=== PATIENT | female | born 1990 | race Caucasian/White ===

== ENCOUNTER 2018-08-13 05:13 | Inpatient (IN) | payer BC ==
[2018-08-13] MEDS ORDERED: Nalbuphine 20 MG/ML 1 ML Syringe IVPUSH PRN (05:31)
[2018-08-13] MEDS ORDERED: Metoclopramide 10 MG/2 ML SDV IVPUSH ONE (05:31)
[2018-08-13] MEDS ORDERED: Citric Acid/Sodium Citrate Solution 30 ML Cup PO ONE (05:31)
[2018-08-13] MEDS ORDERED: ceFAZolin 2 GM in Premix Bag 1 BAG IV ONE (05:31)
[2018-08-13] MEDS ORDERED: Sodium Chloride 0.9% 10 ML Syringe FLUSH PRN (05:31)
[2018-08-13] MEDS ORDERED: Oxytocin/Lactated Ringers 10 UNIT/1,000 ML BAG IV SCH (05:45)
[2018-08-13] MEDS ORDERED: Lactated Ringers 1,000 ML IV SCH (05:45)
[2018-08-13] MEDS ORDERED: Oxytocin 10 Units/1 ML SDV ONE (07:01)
[2018-08-13] MEDS ORDERED: Morphine PF 10 MG/10 ML SDV ONE (07:01)
[2018-08-13] MEDS ORDERED: Ondansetron 4 MG/2 ML SDV ONE (07:01)
[2018-08-13] MEDS ORDERED: ceFAZolin 1 GM Vial ONE (07:01)
[2018-08-13] MEDS ORDERED: Lactated Ringers 1,000 ML ONE (07:01)
[2018-08-13] MEDS ORDERED: Bupivacaine 0.75%/D5W 2 ML Amp ONE (07:01)
[2018-08-13] MEDS ORDERED: diphenhydrAMINE 50 MG/ML SDV IVPUSH PRN ×3 (07:28→10:44)
[2018-08-13] MEDS ORDERED: fentaNYL 100 MCG/2 ML SDV EPIDUR PRN (07:28)
[2018-08-13] MEDS ORDERED: ePHEDrine 50 MG/ML SDV IVPUSH PRN ×3 (07:28→10:44)
[2018-08-13] MEDS ORDERED: fentaNYL/Bupivacaine-NS 2 MCG/ML-0.125%/PF 100 ML Bag EP SCH (07:30)
[2018-08-13] MEDS ORDERED: Terbutaline 1 MG/ML SDV SUBCUT ONE (07:45)
--- NOTE | 2018-08-13 07:48 | PCM.PREANE ---
Preanesthetic Assessment - Anesthesia/Transfusion/Family Hx Anesthesia History: Prior Anesthesia Without Reaction Family History of Anesthesia Reaction: No Transfusion History: No Prior Transfusion(s) - Review of Systems General: No Symptoms, Other (anemia) Pulmonary: No Symptoms Cardiovascular: No Symptoms Gastrointestinal: No Symptoms Neurological: No Symptoms Other: Reports: Anxiety - Physical Assessment NPO Status Date: 08/12/18 NPO Status Time: 22:30 O2 Sat by Pulse Oximetry: 93 Respiratory Rate: 18 Vital Signs: Last Vital Signs Temp 36.9 C 08/13/18 05:31 Pulse 100 08/13/18 05:31 Resp 18 08/13/18 05:31 BP 117/79 08/13/18 05:31 Pulse Ox 93 L 08/13/18 05:31 Height: 1.6 m Weight: 95.663 kg ASA Class: 2 Mental Status: Alert & Oriented x3 Airway Class: Mallampati = 2 Dentition: Reports: Normal Dentition Thyro-Mental Finger Breadths: 3 Mouth Opening Finger Breadths: 3 ROM/Head Extension: Full Lungs: Clear to Auscultation, Normal Respiratory Effort Cardiovascular: Regular Rate - Lab Values: Laboratory Last Values WBC 9.25 K/mm3 (3.98-10.04) 08/13/18 05:48 RBC 4.14 M/mm3 (3.98-5.22) 08/13/18 05:48 Hgb 11.1 gm/L (11.2-15.7) L 08/13/18 05:48 Hct 33.1 % (34.1-44.9) L 08/13/18 05:48 MCV 80.0 fl (79.4-94.8) 08/13/18 05:48 MCH 26.8 pg (25.6-32.2) 08/13/18 05:48 MCHC 33.5 g/dl (32.2-35.5) 08/13/18 05:48 RDW Std Deviation 38.5 fL (36.4-46.3) 08/13/18 05:48 Plt Count 235 K/mm3 (182-369) 08/13/18 05:48 MPV 9.9 fl (9.4-12.3) 08/13/18 05:48 Neut % (Auto) 75.9 % (34.0-71.1) H 08/13/18 05:48 Lymph % (Auto) 13.3 % (19.3-51.7) L 08/13/18 05:48 [place] % (Auto) 9.5 % (4.7-12.5) 08/13/18 05:48 Eos % (Auto) 0.8 (0.7-5.8) 08/13/18 05:48 Baso % (Auto) 0.1 % (0.1-1.2) 08/13/18 05:48 Neut # (Auto) 7.02 K/mm3 (1.56-6.13) H 08/13/18 05:48 Lymph # (Auto) 1.23 K/mm3 (1.18-3.74) 08/13/18 05:48 [place] # (Auto) 0.88 K/mm3 (0.24-0.36) H 08/13/18 05:48 Eos # (Auto) 0.07 K/mm3 (0.04-0.36) 08/13/18 05:48 Baso # (Auto) 0.01 K/mm3 (0.01-0.08) 08/13/18 05:48 Blood Type B POSITIVE 08/13/18 05:48 Gel Antibody Screen Negative 08/13/18 05:48 - Allergies Allergies/Adverse Reactions: Allergies Allergy/AdvReac Type Severity Reaction Status Date / Time No Known Allergies Allergy Verified 06/02/18 19:19 - Blood Blood Available: No Product(s) Available: None - Anesthesia Plan Pre-Op Medication Ordered: None - Acknowledgements Anesthesia Type Planned: Spinal (if proceeds to , if successful version , then proceed with epidural, platelets 235) Pt an Appropriate Candidate for the Planned Anesthesia: Yes Alternatives and Risks of Anesthesia Discussed w Pt/Guardian: Yes Pt/Guardian Understands and Agrees with Anesthesia Plan: Yes PreAnesthesia Questionnaire - Past Health History Medical/Surgical History: Denies 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: - SUBSTANCE USE Smoking Status *Q: Never Smoker Second Hand Smoke Exposure: No Recreational Drug Use History: No - HOME MEDS Home Medications: Home Meds [id number]/Iron Fumarate/FA/DSS [ 19 Tablet] 1 tab PO DAILY 06/02/18 [ History] - CURRENT (IN HOUSE) MEDS Current Meds: Current Medications Diphenhydramine HCl (Benadryl) 25 mg IVPUSH Q6H PRN PRN Reason: Itching Ephedrine Sulfate (Ephedrine Sulfate) 5 mg IVPUSH ASDIRECTED PRN PRN Reason: HYPOTENTSION Fentanyl (Sublimaze) 100 mcg EPIDUR Q3H PRN PRN Reason: Pain Fentanyl/Bupivacaine HCl (Mkphppfv-Fnjxs-Rt 2 Mcg/Ml-0.125%) 100 ml EP ASDIRECTED ADELITA Lactated Ringer's (Ringers, Lactated) 1,000 mls @ 125 mls/hr IV ASDIRECTED ADELITA Oxytocin/Lactated Ringer's (Pitocin In Lr 10 Units/1,000 Ml) 10 unit in 1,000 mls @ 100 mls/hr IV ASDIRECTED ADELITA; Protocol Nalbuphine HCl (Nubain) 10 mg IVPUSH Q2H PRN PRN Reason: pain Sodium Chloride (Saline Flush) 10 ml FLUSH ASDIRECTED PRN PRN Reason: Keep Vein Open Discontinued Medications Bupivacaine HCl/Dextrose (Marcaine 0.75% Spinal) Confirm Administered Dose 2 ml .ROUTE .STK-MED ONE Stop: 08/13/18 07:02 Cefazolin Sodium (Ancef) Confirm Administered Dose 2 gm .ROUTE .STK-MED ONE Stop: 08/13/18 07:02 Citric Acid/Sodium Citrate (Bicitra Solution) 30 ml PO ONETIME ONE Stop: 08/13/18 05:32 Cefazolin Sodium/Dextrose 2 gm (/ Premix) 50 mls @ 100 mls/hr IV ONETIME ONE Stop: 08/13/18 06:00 Lactated Ringer's (Ringers, Lactated) Confirm Administered Dose 1,000 mls @ as directed .ROUTE .STK-MED ONE Stop: 08/13/18 07:02 Metoclopramide HCl (Reglan) 10 mg IVPUSH ONETIME ONE Stop: 08/13/18 05:32 Morphine Sulfate (Duramorph Pf) Confirm Administered Dose 10 mg .ROUTE .STK-MED ONE Stop: 08/13/18 07:02 Ondansetron HCl (Zofran) Confirm Administered Dose 4 mg .ROUTE .STK-MED ONE Stop: 08/13/18 07:02 Oxytocin (Pitocin) Confirm Administered Dose 10 unit .ROUTE .STK-MED ONE Stop: 08/13/18 07:02
[2018-08-13] MEDS ORDERED: Terbutaline 1 MG/ML SDV ONE (07:52)
[2018-08-13] MEDS ORDERED: Bupivacaine 0.5% 30 ML SDV ONE (08:14)
[2018-08-13] MEDS ORDERED: Metoclopramide 10 MG/2 ML SDV ONE (08:24)
[2018-08-13] MEDS ORDERED: Citric Acid/Sodium Citrate Solution 30 ML Cup ONE (08:24)
[2018-08-13] MEDS ORDERED: Ketorolac 30 MG/ML SDV ONE (09:14)
[2018-08-13] MEDS ORDERED: fentaNYL 100 MCG/2 ML SDV IVPUSH PRN (09:37)
--- NOTE | 2018-08-13 09:39 | PCM.OPNOTE ---
- General Post-Op/Procedure Note Date of Surgery/Procedure: 08/13/18 Operative Procedure(s): primaray section Findings: viable male, footling breech, 8/, weight 7#10 oz at 0904 Pre Op Diagnosis: breech, failed version Post-Op Diagnosis: Same Anesthesia Technique: Spinal Primary Surgeon: Reena Ko Health Information Technologist: Charo Gao Fluid Replacement, Intraop: 1,800 Output, Urine Amount: 300 EBL in mLs: 600 Complications: None Condition: Good Free Text/Narrative:: The patient was taken to the operating room where epidural anesthesia was dosed to surgical levels without difficulty. The patient was prepped and draped in the usual sterile fashion in the dorsal supine position with a leftward tilt. A Pfannenstiel skin incision was made with the scalpel and carried through to the underlying layer of fascia. The fascia was incised in the midline and extended laterally using Johnson scissors. Isabelle clamps were used to elevate the superior aspect of the fascial incision, which was elevated, and the underlying rectus muscles were dissected off bluntly and using Johnson scissors. Attention was then turned to the inferior aspect of the fascial incision, which in similar fashion was grasped with Isabelle clamps, elevated, and the underlying rectus muscles were dissected off bluntly and using the johnson. The rectus muscles were dissected in the midline. The peritoneum was entered bluntly; this incision was extended superiorly and inferiorly with good visualization of the bladder. The bladder blade was inserted. The vesicouterine peritoneum was identified and entered sharply using Metzenbaum scissors. This incision was extended laterally and the bladder flap was created digitally. The bladder blade was reinserted. The lower uterine segment was incised in a transverse fashion using the scalpel and with digital traction. Clear fluid was noted. The was subsequently delivered grasping the feet and delivering in usual breech fashion. The cord was clamped and cut. The infant was subsequently handed to the awaiting manager sports whose presence had been requested.. The placenta was delivered spontaneously intact with a three- vessel cord noted. The uterus was exteriorized and cleared of all clots and debris. The uterine incision was repaired in 2 layers using 0 monocryl. Hemostasis was visualized. Hemostasis was visualized bilaterally. The uterus was returned to the abdomen. The uterine incision was reexamined and it was noted to be hemostatic. The pelvis was copiously irrigated. The fascia was closed with 1 PDS suture, and the skin was closed with 3-0 monocryl. Sponge, lap, and instrument counts were correct x2. The patient was stable at the completion of the procedure and was subsequently transferred to the recovery room in stable condition.
--- NOTE | 2018-08-13 09:39 | PCM.POSTAN ---
POST ANESTHESIA ASSESSMENT - MENTAL STATUS Mental Status: Alert, Oriented - VITAL SIGNS Pulse Rate: 102 SaO2: 99 Resp Rate: 19 Blood Pressure: 120/58 Temperature: 36.6 C - RESPIRATORY Respiratory Status: Respiratory Rate WNL, Airway Patent, O2 Saturation Stable, Supplemental Oxygen - CARDIOVASCULAR CV Status: Pulse Rate WNL, Blood Pressure Stable - GASTROINTESTINAL GI Status: No Symptoms - PAIN Pain Score: 0 Free Text/Narrative:: 0 - POST OP HYDRATION Hydration Status: Adequate & Stable
[2018-08-13] MEDS ORDERED: Lanolin 100% Cream 7 GM Tube TOP PRN (10:44)
[2018-08-13] MEDS ORDERED: Dextrose 5%-Lactated Ringers 1,000 ML IV SCH (10:44)
[2018-08-13] MEDS ORDERED: Docusate Sodium 100 MG Cap PO PRN (10:44)
[2018-08-13] MEDS ORDERED: Witch Hazel Medicated Pads 100/Jar TOP PRN (10:44)
[2018-08-13] MEDS ORDERED: Naloxone 0.4 MG/ML SDV IVPUSH PRN (10:44)
[2018-08-13] MEDS ORDERED: Ondansetron 4 MG/2 ML SDV IVPUSH PRN (11:04)
[2018-08-13] MEDS ORDERED: Haloperidol Lactate 5 MG/ML SDV IVPUSH PRN (11:38)
[2018-08-13] MEDS ORDERED: Promethazine 12.5 MG in Sodium Chloride 0.9% 50 ML IV ONE (16:02)
[2018-08-13] MEDS ORDERED: Sodium Chloride 0.9% 1,000 ML IV SCH (16:45)
[2018-08-13] MEDS: Ketorolac 30 MG/ML SDV IVPUSH SCH ×2 (16:57→21:25)
[2018-08-13] MEDS ORDERED: Sodium Chloride 0.9% 500 ML IV ONE (17:00)
[2018-08-14] MEDS: Ketorolac 30 MG/ML SDV IVPUSH SCH (03:51)
[2018-08-14] MEDS: Acetaminophen/oxyCODONE 325-5 MG Tab PO PRN ×3 (06:38→19:38)
--- NOTE | 2018-08-14 07:56 | PCM48HPAN ---
Post Anesthesia Note - EVALUATION WITHIN 48HRS OF ANESTHETIC Vital Signs in Normal Range: Yes Patient Participated in Evaluation: Yes Respiratory Function Stable: Yes Airway Patent: Yes Cardiovascular Function Stable: Yes Hydration Status Stable: Yes Pain Control Satisfactory: Yes Nausea and Vomiting Control Satisfactory: Yes Mental Status Recovered: Yes
[2018-08-14] MEDS ORDERED: Ibuprofen 600 MG Tab PO PRN (09:30)
[2018-08-14] MEDS: Simethicone 80 MG Tab.Chew PO PRN ×2 (19:38→22:45)
[2018-08-15] MEDS: Simethicone 80 MG Tab.Chew PO PRN (04:47)
--- NOTE | 2018-08-15 08:55 | PCM.DCSUM1 ---
Discharge Summary - Hospital Course Diagnosis: Stroke: No - Discharge Data Discharge Date: 08/15/18 Discharge Disposition: Home, Self-Care 01 Condition: Good - Patient Summary/Data Operative Procedure(s) Performed: primaray section Hospital Course: Unremarkable course. - Patient Instructions Diet: Usual Diet as Tolerated Activity: No Strenuous Activities Activity, Other: pelvic rest Driving: May Drive Today Notify Provider of: Fever, Increased Pain, Swelling and Redness, Drainage, Nausea and/or Vomiting - Discharge Plan *PRESCRIPTION DRUG MONITORING PROGRAM REVIEWED*: No *COPY OF PRESCRIPTION DRUG MONITORING REPORT IN PATIENT MITCHELL: No Home Medications: Home Meds [id number]/Iron Fumarate/FA/DSS [ 19 Tablet] 1 tab PO DAILY 06/02/18 [ History] Referrals: Reena Ko MD [Primary Care Provider] - (2 weeks) - Discharge Summary/Plan Comment DC Time >30 min.: No - Patient Data Vitals - Most Recent: Last Vital Signs Temp 36.9 C 08/15/18 03:45 Pulse 87 08/15/18 03:45 Resp 16 08/15/18 03:45 BP 114/82 08/15/18 03:45 Pulse Ox 98 08/15/18 03:45 Weight - Most Recent: 95.663 kg I&O - Last 24 hours: Intake & Output 08/14/18 08/15/18 08/15/18 22:59 06:59 14:59 Intake Total 0 1800 Output Total 300 Balance 0 1500 Med Orders - Current: Current Medications Diphenhydramine HCl (Benadryl) 25 mg IVPUSH Q6H PRN PRN Reason: Itching or Nausea Docusate Sodium (Colace) 100 mg PO Q12H PRN PRN Reason: Constipation Last Admin: 08/14/18 22:45 Dose: 100 mg Emollient Ointment (Lansinoh Hpa) 0 gm TOP ASDIRECTED PRN PRN Reason: Sore Nipples Ephedrine Sulfate (Ephedrine Sulfate) 5 mg IVPUSH SEECOMMENT PRN PRN Reason: Other Ibuprofen (Motrin) 600 mg PO Q6H PRN PRN Reason: mild pain or fever Last Admin: 08/14/18 11:38 Dose: 600 mg Naloxone HCl (Narcan) 0.1 mg IVPUSH SEECOMMENT PRN PRN Reason: Respiratory Depression Ondansetron HCl (Zofran) 4 mg IVPUSH Q8H PRN PRN Reason: Nausea Oxycodone/Acetaminophen (Percocet 325-5 Mg) 2 tab PO Q6H PRN PRN Reason: Pain (moderate 4-6) Last Admin: 08/14/18 19:38 Dose: 2 tab Simethicone (Simethicone) 80 mg PO Q4H PRN PRN Reason: Gas Last Admin: 08/15/18 04:47 Dose: 80 mg Witch Sharonda (Tucks) 1 pad TOP ASDIRECTED PRN PRN Reason: Perineal Comfort Measure Discontinued Medications Bupivacaine HCl (Marcaine 0.5%) Confirm Administered Dose 30 ml .ROUTE .STK-MED ONE Stop: 08/13/18 08:15 Last Admin: 08/13/18 08:59 Dose: 20 ml Bupivacaine HCl/Dextrose (Marcaine 0.75% Spinal) Confirm Administered Dose 2 ml .ROUTE .STK-MED ONE Stop: 08/13/18 07:02 Cefazolin Sodium (Ancef) Confirm Administered Dose 2 gm .ROUTE .STK-MED ONE Stop: 08/13/18 07:02 Citric Acid/Sodium Citrate (Bicitra Solution) 30 ml PO ONETIME ONE Stop: 08/13/18 05:32 Last Admin: 08/13/18 08:30 Dose: 30 ml Citric Acid/Sodium Citrate (Bicitra Solution) Confirm Administered Dose 30 ml .ROUTE .STK-MED ONE Stop: 08/13/18 08:25 Last Admin: 08/13/18 20:19 Dose: Not Given Diphenhydramine HCl (Benadryl) 25 mg IVPUSH Q6H PRN PRN Reason: Itching Diphenhydramine HCl (Benadryl) 25 mg IVPUSH Q6H PRN PRN Reason: itching Stop: 08/13/18 12:00 Ephedrine Sulfate (Ephedrine Sulfate) 5 mg IVPUSH ASDIRECTED PRN PRN Reason: HYPOTENTSION Ephedrine Sulfate (Ephedrine Sulfate) 5 mg IVPUSH ASDIRECTED PRN PRN Reason: Hypotension Stop: 08/13/18 12:00 Fentanyl (Sublimaze) 100 mcg EPIDUR Q3H PRN PRN Reason: Pain Fentanyl (Sublimaze) 50 mcg IVPUSH Q5M PRN PRN Reason: pain Stop: 08/13/18 12:00 Fentanyl/Bupivacaine HCl (Kqccnvmu-Btfuc-Bx 2 Mcg/Ml-0.125%) 100 ml EP ASDIRECTED ADELITA Haloperidol Lactate (Haldol) 1 mg IVPUSH ONETIME PRN PRN Reason: Nausea Stop: 08/13/18 13:30 Last Admin: 08/13/18 12:05 Dose: 1 mg Cefazolin Sodium/Dextrose 2 gm (/ Premix) 50 mls @ 100 mls/hr IV ONETIME ONE Stop: 08/13/18 06:00 Last Admin: 08/13/18 20:19 Dose: Not Given Lactated Ringer's (Ringers, Lactated) 1,000 mls @ 125 mls/hr IV ASDIRECTED [facility] Oxytocin/Lactated Ringer's (Pitocin In Lr 10 Units/1,000 Ml) 10 unit in 1,000 mls @ 100 mls/hr IV ASDIRECTED [facility]; Protocol Lactated Ringer's (Ringers, Lactated) Confirm Administered Dose 1,000 mls @ as directed .ROUTE .STK-MED ONE Stop: 08/13/18 07:02 Dextrose/Lactated Ringer's (Dextrose 5%-Lactated Ringers) 1,000 mls @ 125 mls/ hr IV ASDIRECTED ADELITA Stop: 08/13/18 18:43 Last Admin: 08/13/18 10:54 Dose: 125 mls/hr Promethazine HCl 12.5 mg/ (Sodium Chloride) 50.5 mls @ 100 mls/hr IV ONETIME ONE Stop: 08/13/18 16:32 Last Admin: 08/13/18 17:05 Dose: 100 mls/hr Sodium Chloride (Normal Saline) 1,000 mls @ 125 mls/hr IV ASDIRECTED [facility] Last Admin: 08/13/18 16:57 Dose: 125 mls/hr Sodium Chloride (Normal Saline) 500 mls @ 999 mls/hr IV ONETIME ONE Stop: 08/13/18 17:30 Last Admin: 08/13/18 17:47 Dose: Not Given Ketorolac Tromethamine (Toradol) Confirm Administered Dose 30 mg .ROUTE .STK- MED ONE Stop: 08/13/18 09:15 Ketorolac Tromethamine (Toradol) 30 mg IVPUSH Q6H ADELITA Stop: 08/14/18 03:31 Last Admin: 08/14/18 03:51 Dose: 30 mg Metoclopramide HCl (Reglan) 10 mg IVPUSH ONETIME ONE Stop: 08/13/18 05:32 Last Admin: 08/13/18 08:30 Dose: 10 mg Metoclopramide HCl (Reglan) Confirm Administered Dose 10 mg .ROUTE .STK-MED ONE Stop: 08/13/18 08:25 Last Admin: 08/13/18 20:19 Dose: Not Given Morphine Sulfate (Duramorph Pf) Confirm Administered Dose 10 mg .ROUTE .STK-MED ONE Stop: 08/13/18 07:02 Nalbuphine HCl (Nubain) 10 mg IVPUSH Q2H PRN PRN Reason: pain Ondansetron HCl (Zofran) Confirm Administered Dose 4 mg .ROUTE .STK-MED ONE Stop: 08/13/18 07:02 Oxytocin (Pitocin) Confirm Administered Dose 10 unit .ROUTE .STK-MED ONE Stop: 08/13/18 07:02 Sodium Chloride (Saline Flush) 10 ml FLUSH ASDIRECTED PRN PRN Reason: Keep Vein Open Terbutaline Sulfate (Brethine) Confirm Administered Dose 1 mg .ROUTE .STK-MED ONE Stop: 08/13/18 07:53 Last Admin: 08/13/18 07:55 Dose: 1 mg Terbutaline Sulfate (Brethine) 0.25 mg SUBCUT ONETIME ONE Stop: 08/13/18 07:46 Last Admin: 08/13/18 11:49 Dose: Not Given - Exam General: Reports: Alert, Oriented HEENT: Reports: Pupils Equal, Pupils Reactive, EOMI, Mucous Membr. Moist/[place] Neck: Reports: Supple Lungs: Reports: Clear to Auscultation, Normal Respiratory Effort Cardiovascular: Reports: Regular Rate, Regular Rhythm GI/Abdominal Exam: Normal Bowel Sounds, Soft, Non-Tender, No Organomegaly, No Distention, No Abnormal Bruit, No Mass, Pelvis Stable (Female) Exam: Normal Bimanual Exam Rectal (Female) Exam: Normal Exam Back Exam: Reports: Normal Inspection, Full Range of Motion Extremities: Normal Inspection, Normal Range of Motion, Non-Tender, No Pedal Edema, Normal Capillary Refill Skin: Reports: Warm, Dry, Intact Wound/Incisions: Reports: Healing Well Neurological: Reports: No New Focal Deficit Psy/Mental Status: Reports: Alert, Normal Affect, Normal Mood
[2018-08-15 12:18] VITALS: BP 116/78
== END 2018-08-15 11:30 | disposition home or self-care (01) | DRG 540 ==
LOC: INTOOBSV 05:13 → JD.OB 05:13 → OBSVTOIN 09:04 → JD.OB 09:04
PROVIDERS: ADMIT Obstetrics & Gynecology; ATTEND Obstetrics & Gynecology
PROC: 10D00Z1 Extraction of Products of Conception, Low, Open Approach (ICD-10-PCS; principal; 2018-08-13)
DX: O32.8XX0 Maternal care for other malpresentation of fetus, not applicable or unspecified (principal); O99.344 Other mental disorders complicating childbirth; O99.02 Anemia complicating childbirth; D64.9 Anemia, unspecified; F41.9 Anxiety disorder, unspecified; Z3A.39 39 weeks gestation of pregnancy; Z37.0 Single live birth
CPT/HCPCS: 01961; 36415; 59025; 59412; 85025; 86592; 86850; 86900; 86901; A9270-GY; J0690; J1630; J1885; J2270; J2405; J2550; J2590; J2765; J3105; J3490; J7040; J7042; J7050; J7120

== ENCOUNTER 2020-08-26 10:16 | Emergency (ER) | payer BC ==
[2020-08-26] MEDS ORDERED: Sodium Chloride 0.9% 10 ML Syringe FLUSH PRN (11:18)
--- NOTE | 2020-08-26 11:59 | EDM.PDOC ---
ED HPI GENERAL MEDICAL PROBLEM - General Chief Complaint: Abdominal Pain Stated Complaint: UPPER ABD PAIN /6 WEEKS PREG Time Seen by Provider: 08/26/20 11:07 Source of Information: Reports: Patient, RN Notes Reviewed History Limitations: Reports: No Limitations - History of Present Illness INITIAL COMMENTS - FREE TEXT/NARRATIVE: Patient is a 30-year-old female presenting to the emergency part with complaints of a 2-week history of upper abdominal pain. Pain is worsened with eating she describes it as a sharp, cramping pain. She was seen at the walk-in clinic on Sunday of this week and blood work done which was all found to be normal. She is approximately 6 to 7 weeks . She does have nausea but has had no vomiting. Denies diarrhea or heartburn. She has not taken any wugz-hyo-gdlzkki antacids or other medications. Upper Abdominal Pain Score (Numeric/FACES): 6 - Related Data Allergies Allergy/AdvReac Type Severity Reaction Status Date / Time No Known Allergies Allergy Verified 08/26/20 10:44 Home Meds: Home Meds Prenat 115/Iron Fum/Folic/Dss [ 19 Tablet] 1 tab PO DAILY 06/02/18 [History] Omeprazole 20 mg PO DAILY #30 capsule. 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 Denies: Fever, Chills, Decreased Appetite HEENT: Reports: No Symptoms Respiratory: Reports: No Symptoms Cardiovascular: Reports: No Symptoms Endocrine: Reports: No Symptoms GI/Abdominal: Reports: Abdominal Pain (Upper abdominal pain), Nausea. Denies: Diarrhea, Vomiting : Reports: No Symptoms Musculoskeletal: Reports: No Symptoms Skin: Reports: No Symptoms Neurological: Reports: No Symptoms Psychiatric: Reports: No Symptoms Hematologic/Lymphatic: Reports: No Symptoms Immunologic: Reports: No Symptoms ED EXAM, GI/ABD - Physical Exam Exam: See Below General Appearance: Alert, WD/WN, No Apparent Distress Respiratory/Chest: No Respiratory Distress, Lungs Clear, Normal Breath Sounds, No Accessory Muscle Use, Chest Non-Tender Cardiovascular: Normal Peripheral Pulses, Regular Rate, Rhythm, No Edema, No Gallop, No JVD, No Murmur, No Rub GI/Abdominal Exam: Normal Bowel Sounds, Soft, No Organomegaly, No Distention, No Abnormal Bruit, No Mass, Pelvis Stable, Tender (Epigastric and right upper quadrant. Worse in the epigastrium) Neurological: Alert, Oriented, CN II-XII Intact, Normal Cognition, Normal Gait, Normal Reflexes, No Motor/Sensory Deficits Psychiatric: Normal Affect, Normal Mood Skin Exam: Warm, Dry, Intact, Normal Color, No Rash Course - Vital Signs Last Recorded V/S: Last Vital Signs Temp 98.5 F 08/26/20 10:37 Pulse 76 08/26/20 10:37 Resp 13 08/26/20 10:37 BP 123/78 08/26/20 10:37 Pulse Ox 100 08/26/20 10:37 - Orders/Labs/Meds Orders: Active Orders 24 hr Category Date Time Status Peripheral IV Care [RC] . DIRECTED Care 08/26/20 11:18 Active Sodium Chloride 0.9% [Saline Flush] Med 08/26/20 11:18 Active 10 ml FLUSH ASDIRECTED PRN Peripheral IV Insertion Adult [OM.PC] Stat Oth 08/26/20 11:18 Ordered Labs: Laboratory Tests 08/26/20 08/26/20 Range/Units 12:11 12:11 WBC 9.40 (3.98-10.04) K/mm3 RBC 4.75 (3.98-5.22) M/mm3 Hgb 13.5 D (11.2-15.7) gm/dl Hct 39.6 (34.1-44.9) % MCV 83.4 (79.4-94.8) fl MCH 28.4 (25.6-32.2) pg MCHC 34.1 (32.2-35.5) g/dl RDW Std Deviation 39.2 (36.4-46.3) fL Plt Count 259 (182-369) K/mm3 MPV 9.8 (9.4-12.3) fl Neut % (Auto) 78.0 H (34.0-71.1) % Lymph % (Auto) 12.4 L (19.3-51.7) % [place] % (Auto) 8.5 (4.7-12.5) % Eos % (Auto) 0.9 (0.7-5.8) Baso % (Auto) 0.1 (0.1-1.2) % Neut # (Auto) 7.33 H (1.56-6.13) K/mm3 Lymph # (Auto) 1.17 L (1.18-3.74) K/mm3 [place] # (Auto) 0.80 H (0.24-0.36) K/mm3 Eos # (Auto) 0.08 (0.04-0.36) K/mm3 Baso # (Auto) 0.01 (0.01-0.08) K/mm3 Sodium 138 (136-145) mEq/L Potassium 4.1 (3.5-5.1) mEq/L Chloride 102 (98-107) mEq/L Carbon Dioxide 27 (21-32) mEq/L Anion Gap 13.1 (5-15) BUN 14 (7-18) mg/dL Creatinine 0.8 (0.55-1.02) mg/dL Est Cr Clr Drug Dosing 85.06 mL/min Estimated GFR (MDRD) > 60 (>60) mL/min BUN/Creatinine Ratio 17.5 (14-18) Glucose 78 (74-106) mg/dL Calcium 9.0 (8.5-10.1) mg/dL Total Bilirubin 0.4 (0.2-1.0) mg/dL AST 16 (15-37) U/L ALT 36 (14-59) U/L Alkaline Phosphatase 65 (46-116) U/L C-Reactive Protein 1.2 H* (<1.0) mg/dL Total Protein 7.7 (6.4-8.2) g/dl Albumin 3.9 (3.4-5.0) g/dl Globulin 3.8 gm/dL Albumin/Globulin Ratio 1.0 (1-2) Lipase 160 (73-393) U/L - Re-Assessments/Exams Free Text/Narrative Re-Assessment/Exam: Patient is a 30-year-old female presenting to the emergency part with complaints of a 2-week history of upper abdominal pain. Is are worse anytime she eats. She has had no vomiting but does feel nauseous, however she is also 6 to 7 weeks . Denies any fever, chills, or diarrhea. On exam, she does have localized discomfort to the epigastrium and to a lesser degree the right upper quadrant. I have ordered a right upper quadrant ultrasound, blood work including CBC, CMP, CRP, and lipase. 08/26/20 13:01 Hematology is found to be grossly unremarkable. Lipase and liver enzymes are normal. Ultrasound of the right upper quadrant showed no acute abnormalities. Discussed with patient that she is likely suffering from gastritis. I will start her on daily omeprazole as well as Carafate. Recommend follow-up in the clinic early next week. Discharge instructions as documented. Departure - Departure Time of Disposition: 13:02 Disposition: Home, Self-Care 01 Condition: Good Clinical Impression: Abdominal pain Qualifiers: Abdominal location: upper abdomen, unspecified Qualified Code(s): R10.10 - Upper abdominal pain, unspecified - Discharge Information *PRESCRIPTION DRUG MONITORING PROGRAM REVIEWED*: No *COPY OF PRESCRIPTION DRUG MONITORING REPORT IN PATIENT MITCHELL: No Prescriptions: Sucralfate [Carafate] 1 gm PO ACBED #40 tab Omeprazole 20 mg PO DAILY #30 capsule.dr Instructions: Abdominal Pain, Adult, [id number] Referrals: Reena Ko MD [Primary Care Provider] - Forms: ED Department Discharge Additional Instructions: You were seen in the emergency department today for evaluation with regards to upper abdominal pain for the last 2 weeks, worse with eating. Work-up included blood work, and an ultrasound of your upper abdomen. Results of your work-up were found to be normal. As we discussed, you are likely suffering from gastritis which is an inflammation of the lining of your stomach. You been started on omeprazole as well as Carafate. Uses medications as prescribed. Recommend follow-up in the clinic early next week for reevaluation. The number to schedule with a provider is [phone]. Return to ER for any new or worsening symptoms of concern. Sepsis Event Note (ED) - Evaluation Sepsis Screening Result: No Definite Risk - Focused Exam Vital Signs: Vital Signs Temp Pulse Resp BP Pulse Ox 08/26/20 10:37 98.5 F 76 13 123/78 100 - My Orders Last 24 Hours: My Active Orders 08/26/20 11:18 Peripheral IV Care [RC] . DIRECTED Sodium Chloride 0.9% [Saline Flush] 10 ml FLUSH ASDIRECTED PRN Peripheral IV Insertion Adult [OM.PC] Stat - Assessment/Plan Last 24 Hours: My Active Orders 08/26/20 11:18 Peripheral IV Care [RC] . DIRECTED Sodium Chloride 0.9% [Saline Flush] 10 ml FLUSH ASDIRECTED PRN Peripheral IV Insertion Adult [OM.PC] Stat
--- NOTE | 2020-08-26 12:13 | US ---
Limited abdominal ultrasound: Multiple real-time images were obtained of the upper right abdomen. Comparison: No previous study. Liver shows no focal parenchymal abnormality. Gallbladder contains no shadowing gallstones. No gallbladder wall thickening or biliary duct dilatation is seen. Pancreas is within normal limits. Main portal vein shows normal hepatopedal flow. Right kidney shows no hydronephrosis or mass. Right kidney has a length of 11.8 cm. Impression: 1. No abnormality is identified on right upper quadrant abdominal ultrasound. Diagnostic code #1
[2020-08-26 13:13] VITALS: BP 123/70; PULSE 70
== END 2020-08-26 13:15 | disposition home or self-care (01) ==
LOC: JD.ED 10:16
DX: O99.891 Other specified diseases and conditions complicating pregnancy (principal); R10.13 Epigastric pain; R10.11 Right upper quadrant pain; R11.0 Nausea; Z3A.01 Less than 8 weeks gestation of pregnancy
CPT/HCPCS: 36415; 76705; 76705-26; 80053; 83690; 85025; 86140; 99283; 99284-25

== ENCOUNTER 2021-07-02 19:58 | Emergency (ER) | payer BC ==
[2021-07-02 20:30] VITALS: BP 131/68; PULSE 82
[2021-07-02 20:55] LABS: CORONAVIRUS COVID-19 NAA NEGATIVE (NEGATIVE)
== END 2021-07-03 00:33 | disposition home or self-care (01) ==
LOC: JD.ED 19:58
DX: O20.8 Other hemorrhage in early pregnancy (principal); K21.9 Gastro-esophageal reflux disease without esophagitis; Z20.822 Contact with and (suspected) exposure to COVID-19; Z3A.01 Less than 8 weeks gestation of pregnancy
CPT/HCPCS: 0240U; 36415; 76815; 80053; 81001; 83690; 84702; 85025; 85610; 99284

== ENCOUNTER 2022-01-12 07:08 | Inpatient (IN) | payer BC ==
[~2022-01-12 07:08] MED LIST: Bupivacaine 0.25% 10 ML SDV ONE
[2022-01-12] MEDS ORDERED: Nalbuphine HCl 10 MG/ 1ML Amp IVPUSH PRN ×2 (07:19→07:30)
[2022-01-12] MEDS ORDERED: Sodium Chloride 0.9% 10 ML Syringe FLUSH PRN ×2 (07:19→07:30)
[2022-01-12] MEDS ORDERED: Ondansetron 4 MG/2 ML SDV IVPUSH PRN (07:19)
[2022-01-12] MEDS ORDERED: Lactated Ringers 1,000 ML IV SCH (07:30)
[2022-01-12] MEDS ORDERED: Oxytocin/Lactated Ringers 10 UNIT/1,000 ML BAG IV SCH ×4 (07:30→22:45)
[2022-01-12] MEDS: Lactated Ringers 1,000 ML IV SCH ×2 (08:00→11:11)
[2022-01-12] MEDS ORDERED: Sodium Chloride 0.9% 10 ML Syringe FLUSH SCH ×2 (09:00)
[2022-01-12] MEDS ORDERED: ePHEDrine 50 MG/ML SDV IVPUSH PRN (10:51)
[2022-01-12] MEDS ORDERED: Bupivacaine/fentaNYL/NS 100 ML Bag EPIDUR PRN (10:51)
[2022-01-12] MEDS ORDERED: fentaNYL 100 MCG/2 ML SDV EPIDUR PRN (10:51)
[2022-01-12] MEDS ORDERED: diphenhydrAMINE 50 MG/ML SDV IVPUSH PRN (10:51)
[2022-01-12] MEDS ORDERED: Witch Hazel Medicated Pads 40/Jar TOP PRN (22:40)
[2022-01-12] MEDS ORDERED: Docusate Sodium 100 MG Cap PO PRN (22:40)
[2022-01-12] MEDS ORDERED: Acetaminophen 325 MG Tab PO PRN (22:40)
[2022-01-12] MEDS ORDERED: Benzocaine/Menthol 20%-0.5% Spray 78 GM Cannister TOP PRN (22:40)
[2022-01-12] MEDS ORDERED: Hydrocortisone Acetate 25 MG Supp RECTAL PRN (22:40)
[2022-01-12] MEDS ORDERED: Magnesium Hydroxide 400 MG/5 ML Susp 30 ML Cup PO PRN (22:40)
[2022-01-13] MEDS: Ibuprofen 600 MG Tab PO PRN ×3 (00:02→13:45)
[2022-01-13] MEDS ORDERED: Ferrous Sulfate 324 MG Tab.EC PO SCH (07:00)
[2022-01-13] MEDS ORDERED: Prenatal Multivitamin with Calcium/Folic Acid/Iron Tab PO SCH (09:00)
[2022-01-13 16:01] VITALS: BP 129/67; PULSE 83
== END 2022-01-13 18:30 | disposition home or self-care (01) | DRG 560 ==
LOC: JD.OB 07:08 → JD.OBCHECK 07:08 → JD.OB 07:19 → OBSVTOIN 07:19 → JD.OBCHECK 07:19 → JD.OB 17:35
PROVIDERS: ADMIT Obstetrics & Gynecology; ATTEND Obstetrics & Gynecology
PROC: 10E0XZZ Delivery of Products of Conception, External Approach (ICD-10-PCS; principal; 2022-01-12)
PROC: 0HQ9XZZ Repair Perineum Skin, External Approach (ICD-10-PCS; 2022-01-12)
PROC: 3E0R3BZ Introduction of Anesthetic Agent into Spinal Canal, Percutaneous Approach (ICD-10-PCS; 2022-01-12)
PROC: 00HU33Z Insertion of Infusion Device into Spinal Canal, Percutaneous Approach (ICD-10-PCS; 2022-01-12)
PROC: 10907ZC Drainage of Amniotic Fluid, Therapeutic from Products of Conception, Via Natural or Artificial Opening (ICD-10-PCS; 2022-01-12)
DX: O34.211 Maternal care for low transverse scar from previous cesarean delivery (principal); Z3A.39 39 weeks gestation of pregnancy; Z37.0 Single live birth; O99.52 Diseases of the respiratory system complicating childbirth; J45.909 Unspecified asthma, uncomplicated; O99.344 Other mental disorders complicating childbirth; F41.9 Anxiety disorder, unspecified; O69.81X0 Labor and delivery complicated by cord around neck, without compression, not applicable or unspecified; O70.0 First degree perineal laceration during delivery; O99.214 Obesity complicating childbirth; E66.9 Obesity, unspecified
CPT/HCPCS: 36415; 51702; 59025; 59409; 85025; 86592; 86850; 86900; 86901; A9270-GY; J2405; J2590; J3010; J3490; J7120